=== PATIENT | female | born 1980 | race Caucasian/White ===

== ENCOUNTER → 2018-04-04 | Outpatient (CLI) | payer OTHER | LOC: FIMAGING 12:46 | PROVIDERS: ATTEND Obstetrics & Gynecology | DX: O24.414 Gestational diabetes mellitus in pregnancy, insulin controlled (principal); O09.522 Supervision of elderly multigravida, second trimester; O34.219 Maternal care for unspecified type scar from previous cesarean delivery; Z3A.24 24 weeks gestation of pregnancy ==